=== PATIENT | female | born 2000 | race African-American/Black ===

== ENCOUNTER 2022-09-24 09:29 | Emergency (ER) | payer MEDICAID, OTHER ==
[~2022-09-24] VITALS: Ht 162.6 cm; Wt 68.2 kg
[2022-09-24 09:41] VITALS: O2SAT 100
[2022-09-24] MEDS ORDERED: ACETAMINOPHEN 325MG TABLET PO ONE (14:00)
[2022-09-24 16:23] VITALS: BP 124/86; PULSE 93; RESP 18; TEMP 98.7
== END 2022-09-24 16:23 | disposition home or self-care (01) ==
LOC: ER 09:29
DX: B34.9 Viral infection, unspecified (principal); Z20.822 Contact with and (suspected) exposure to COVID-19
CPT/HCPCS: 99284; 71045; 87426; 81025; C9803